=== PATIENT | male | born 1990 | race Caucasian/White ===

== ENCOUNTER 2016-10-14 12:32 | Emergency (ER) | payer SELFPAY ==
[~2016-10-14] VITALS: Ht 165.1 cm; Wt 56.7 kg
[~2016-10-14 12:32] MED LIST: ABILIFY10 MG PO; CITALOPRAM HBR10 MG PO; CITALOPRAM HBR20 MG PO; DEPAKOTE ER (E500 M1 PO; DEPAKOTE500 MG PO; ILOTYCIN1 GM LEFT EYE; LEVOTHYROXINE25 MCG PO; LORTAB 5-325 M1 EACH PO; MOTRIN600 MG PO; OMEPRAZOLE20 MG PO; QUETIAPINE FUM100 MG PO; QUETIAPINE FUMA25 MG PO; SYNTHROID112 MCG; SYNTHROID25 MCG PO; celeXA PO
[2016-10-14 13:04] VITALS: BP 135/94
[2016-10-14] MEDS ORDERED: TRAMADOL HCL50 MG PO (15:44)
[2016-10-14] MEDS ORDERED: PEN-VEE K,VEET500 MG PO (15:44)
== END 2016-10-14 16:14 | disposition home or self-care (01) ==
LOC: EME 12:32
DX: K02.9 Dental caries, unspecified (principal); K04.7 Periapical abscess without sinus; K03.81 Cracked tooth; R53.83 Other fatigue; R11.0 Nausea; F17.200 Nicotine dependence, unspecified, uncomplicated
CPT/HCPCS: 99281; 99283

== ENCOUNTER 2016-10-21 19:10 | Inpatient (IN) | payer SELFPAY ==
[~2016-10-21] VITALS: Ht 165.1 cm; Wt 55.5 kg
[~2016-10-21 19:10] MED LIST changes: +PEN-VEE K,VEET500 MG PO; +TRAMADOL HCL50 MG PO
[2016-10-21 20:28] LABS: HEMATOCRIT 44.9 % (38.0-50.0); MCH 32.1 PG (29.0-34.0); MCHC 35.6 G/DL (30.0-36.0); MEAN PLAT.VOLUME 9.4 uM^3 (9.0-12.4); PLATELET COUNT 205 K/uL (156-360); RBC DIS.WIDTH-SD 39.4 % (39-53); RED BLOOD COUNT 4.99 M/uL (4.00-5.50); WHITE BLOOD COUNT 4.8 K/uL (4.1-10.2)
[2016-10-21 20:36] LABS: CHLORIDE 108 mEq/L (99-109); POTASSIUM 3.8 mEq/L (3.7-5.4); SODIUM 145 mEq/L (136-147)
[2016-10-21 20:38] LABS: GLUCOSE 115 mg/dL (70-99)
[2016-10-21 20:39] LABS: ANION GAP 14 MEQ/L (2-14)
[2016-10-21 20:41] LABS: SERUM ETHYL ALCOHOL 195 mg/dL
[2016-10-21 20:42] LABS: GFR ESTIMATE (CALCULATED) > 59 mL/min/
[2016-10-21 20:43] LABS: UREA NITROGEN (BUN) 7 mg/dL (9-23)
[2016-10-22 03:32] VITALS: BP 114/63
[2016-10-22 07:00] VITALS: BP 109/57
[2016-10-22 16:42] VITALS: BP 117/71
[2016-10-23 08:05] VITALS: BP 110/71
[2016-10-23 16:08] VITALS: BP 126/70
[2016-10-24 07:48] VITALS: BP 104/72
== END 2016-10-24 13:53 | disposition home or self-care (01) | DRG 883 ==
LOC: EME → EDBD 19:10 → EME 19:10 → 1WEST 10-22 00:54 → EDOF 10-22 00:54 → 1WEST 10-22 03:30
PROVIDERS: Emergency Medicine
DX: F60.3 Borderline personality disorder (principal); F10.14 Alcohol abuse with alcohol-induced mood disorder; F32.9 Major depressive disorder, single episode, unspecified; R45.851 Suicidal ideations; F43.10 Post-traumatic stress disorder, unspecified; F10.129 Alcohol abuse with intoxication, unspecified; F17.200 Nicotine dependence, unspecified, uncomplicated; E03.9 Hypothyroidism, unspecified; Z68.1 Body mass index [BMI] 19.9 or less, adult; Z81.8 Family history of other mental and behavioral disorders
CPT/HCPCS: 80048; 85027; 90837; 99281; 99285; G0480